=== PATIENT | male | born 1950 | race Caucasian/White ===

== ENCOUNTER 2017-09-20 07:13 | Emergency (ER) | payer OTHER ==
[2017-09-20 07:50] VITALS: BP 138/78
--- NOTE | 2017-09-20 08:29 | UC ---
Skin Complaint HPI - HPI Summary HPI Summary: 66 y/o male presents to the urgent care c/o a rash in his RT forearm, RT buttocks and Rt upper thigh s/p exposure to poison carrie while gardening about 1 week ago. Pt was cleaning the garden and he saw the poison carrie, he removed it wearing gloves, but accidentally sat on it. He has applied Hidrocortisone topical cream and Triple ABX to alleviate symptoms w/o any relief. Pt states a lot of itchiness. Pt denies fever, SOB, chest pain, abdominal pain, N/v/D - History of Current Complaint Chief Complaint: UCSkin Time Seen by Provider: 09/20/17 08:09 Stated Complaint: RASH Hx Obtained From: Patient Onset/Duration: Gradual Onset, Lasting Weeks - 1 week, Still Present, Worse Since - yesterday Skin Exposure Onset/Duration: Weeks Ago - 1 week Timing: Constant Onset Severity: Mild Current Severity: Moderate Pain Intensity: 0 Pain Scale Used: 0-10 Numeric Location: Discrete - RT forearm, Rt buttocks and Rt upper thigh Character: Pruritus, Redness Aggravating Factor(s): Touch Alleviating Factor(s): OTC Meds Associated Signs & Symptoms: Positive: Rash. Negative: Fever, Chills, Drainage Related History: Possible Reaction to: Environmental Exposure - Allergy/Home Medications Allergies/Adverse Reactions: Allergies Allergy/AdvReac Type Severity Reaction Status Date / Time latex Allergy Rash Verified 09/20/17 07:38 Home Medications: Home Medications Alfuzosin HCl [Alfuzosin HCl ER] 10 mg PO DAILY 09/20/17 [History Confirmed ] Dutasteride 0.5 mg PO DAILY 09/20/17 [History Confirmed 09/20/17] Losartan TAB* [Cozaar TAB*] 25 mg PO DAILY 09/20/17 [History Confirmed 09/20/17] Review of Systems Constitutional: Negative Skin: Rash - in Rt forearm, Rt upper thigh and Rt buttocks, Other - pruritus Eyes: Negative ENT: Negative Respiratory: Negative Cardiovascular: Negative Gastrointestinal: Negative Genitourinary: Negative Motor: Negative Neurovascular: Negative Musculoskeletal: Negative Neurological: Negative Psychological: Negative Is Patient Immunocompromised?: No All Other Systems Reviewed And Are Negative: Yes PMH/Surg Hx/FS Hx/Imm Hx Previously Healthy: Yes Cardiovascular History: Myocardial Infarction Other GI/ History: BPH - Surgical History Surgical History: Yes Surgery Procedure, Year, and Place: 2017 CYSTS L flank REMOVED, VASECTOMY, tonsillectomy, coronary stent - Family History Known Family History: Positive: Cardiac Disease, Hypertension - Social History Occupation: Employed Full-time Lives: With Family Alcohol Use: Occasionally Substance Use Type: None Smoking Status (MU): Never Smoked Tobacco Have You Smoked in the Last Year: No Physical Exam - Summary Physical Exam Summary: Vital Signs Reviewed: Yes General: well developed, well nourished male sitting in the examining table w/o any apparent distress. Eyes: Positive: Conjunctiva Clear - PERRLA, EOMI ENT: Positive: Normal ENT inspection, Hearing grossly normal, Pharynx normal, TMs normal Neck: Positive: Supple, Nontender, No Lymphadenopathy Respiratory: Positive: Chest nontender, Lungs clear, Normal breath sounds Cardiovascular: Positive: RRR, No Murmur, Pulses Normal Abdomen Description: Positive: Nontender, No Organomegaly, Soft. Negative: CVA Tenderness (R), CVA Tenderness (L) Bowel Sounds: Positive: Present Musculoskeletal: Positive: Strength Intact, ROM Intact, No Edema Neurological Exam: Normal Psychological Exam: Normal Skin: Positive: rashes -RT forearm and RT buttuck and RT upper thigh w/ scattered erythematous blisters and vesicles, particularly in linear streaks w/ mild signs of excoriation, no drainage observed, non tender to palpation. Triage Information Reviewed: Yes Vital Signs: Initial Vital Signs Temp 97.9 F 09/20/17 07:43 Pulse 62 09/20/17 07:43 Resp 16 09/20/17 07:43 BP 138/78 09/20/17 07:43 Pulse Ox 98 09/20/17 07:43 Course/Dx - Course Course Of Treatment: 66 y/o male presents to the urgent care c/o a rash in his RT forearm, RT buttocks and Rt upper thigh s/p exposure to poison carrie while gardening about 1 week ago. Pt was cleaning the garden and he saw the poison carrie, he removed it wearing gloves, but accidentally sat on it. He has applied Hidrocortisone topical cream and Triple ABX to alleviate symptoms w/o any relief. Pt states a lot of itchiness. Pt denies fever, SOB, chest pain, abdominal pain, N/V/D. Hx obtained. Pt w/ poison Carrie rash on examination. PT Rx Prednisone PO taper dose and Clobetasolcinolone topical cream and Benadryl PO to alelviate symptoms. Pt was advised to continue taking Benadryl PO for pruritus. If not improvement or worsening of symptoms to return to the clinic or f/u with PCP or f/u w/ Dr Harris for further treatment.PT understood and agreed with D/C instructions - Differential Diagnoses - Skin Complaint Differential Diagnoses: Abscess, Cellulitis, MRSA, Poison [place], Poison [place], Tick Born Illness - Diagnoses Provider Diagnoses: 1-Poison [place] rash Discharge - Sign-Out/Discharge Documenting (check all that apply): Discharge/Admit/Transfer - D/C home - Discharge Plan Condition: Stable Disposition: HOME Prescriptions: Clobetasol Propionate/Emoll [Clobetasol Emollient 0.05% Crm] 30 gm TP BID #1 cream..g. diPHENhydraMINE PO* [Benadryl PO 25 MG TAB*] 25 mg PO Q6H PRN #30 tab PRN Reason: pruritus predniSONE TAB* [Deltasone 20 MG TAB*] 20 mg PO DAILY #11 tab Patient Education Materials: Poison [place] (ED) Referrals: Jessica Harris [Medical Doctor] - If Needed Johnie Fletcher MD [Primary Care Provider] - 2 Days Additional Instructions: 1-Please apply medication as directed. Take Prednisone PO as directed to alleviate symptoms 2-Take Benadryl PO after to alleviate itchiness. 3-If symptoms do not improve or worsen please f/u with your PCP or Embedded Processor Dr Harris for further evaluation and treatment. - Billing Disposition and Condition Condition: STABLE Disposition: Home
== END 2017-09-20 09:05 | disposition home or self-care (01) ==
LOC: UCEAST 07:13
DX: L23.7 Allergic contact dermatitis due to plants, except food (principal); Z91.040 Latex allergy status; I25.2 Old myocardial infarction; N40.0 Benign prostatic hyperplasia without lower urinary tract symptoms; Z95.5 Presence of coronary angioplasty implant and graft; Z82.49 Family history of ischemic heart disease and other diseases of the circulatory system
CPT/HCPCS: 99212; G0463

== ENCOUNTER 2018-03-23 10:06 | Emergency (ER) | payer OTHER ==
--- OUTSIDE RECORDS SUMMARY | 2018-03-23 10:12 | XMS REPORT | Continuity of Care Document ---
:1950 External Reference #:[id number] Author Name Rivas Courtney M.D. Address [address] [place] [address] Care Team Providers Name Role Phone Johnie Fletcher MD Care Team Information [employer] Chief Unavailable Johnie Fletcher MD Primary Care Physician Unavailable Payers Type Date Identification Numbers Payment Provider Subscriber Policy Number: [id number] [employer] Johan Mcclain PayID: [id number] [address] [place] [address] Advance Directives Description No Information Available Problems Date Description Provider Status Onset: 11/22/2014 Peripheral retinal degeneration Julissa Nunez O.D. Active Onset: 11/22/2014 Vitreous opacities Julissa Nunez O.D. Active Onset: 11/22/2014 Vitreous degeneration Julissa Nunez O.D. Active Onset: 11/22/2014 Regular astigmatism Julissa Nunez O.D. Active Onset: 11/22/2014 Presbyopia Julissa Nunez O.D. 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 Family History Date Family Member(s) Problem(s) Comments Father Cataract Father Ocular Disorder Father Cancer Father Heart Disease Father H/O: Hypertension Mother No Current Problems Social History Type Date Description Comments Sex Unknown ETOH Use Occasionally consumes alcohol Tobacco Use Start: Unknown Patient has never smoked Smoking Status Reviewed: 03/05/18 Patient has never smoked Allergies, Adverse Reactions, Alerts Date Description Reaction Status Severity Comments 09/14/2014 Latex Active Medications Medication Date Status Form Strength Qnty SIG Indications Ordering Provider Aspir-81 00//[address] 81mg once per Unknown 000 day by mouth Carvedilol //0 Active Tablets Unknown 000 Atorvastatin 0 Active Tablets 20mg Unknown Calcium 000 Losartan Active Tablets 25mg Unknown Potassium 000 Alfuzosin HCL ER Active Tablets ER 10mg Unknown 000 24HR Dutasteride Active Capsules 0.5mg 1 by Unknown 000 mouth every day Clopidogrel Hx Tablets Unknown Bisulfate 000 - 018 Lisinopril Hx Tablets Unknown 000 - 018 Multivitamins Hx Capsules Unknown 000 - 018 Immunizations Description No Information Available Vital Signs Date Vital Result Comment 03/05/2018 2:56pm Intraocular Pressure Right Eye 17 mmHg Intraocular Pressure Left Eye 17 mmHg 11/22/2014 8:35am Intraocular Pressure Right Eye 16 mmHg Intraocular Pressure Left Eye 16 mmHg Results Description No Information Available Procedures Date Code Description Status 03/05/2018 72075 Ophthalmoscopy Initial Completed 03/05/2018 88639 Refraction Completed 03/05/2018 94065 Eye Exam New Comprehensive Completed 11/22/2014 88055 Fundus Photography W/Interpretation & Report Completed 11/22/2014 06501 Refraction Completed 11/22/2014 62537 Eye Exam Est Comprehensive Completed 11/22/2014 301 Contact Lens Fit $25 Completed Encounters Description No Information Available Plan of Treatment 03/05/2018 - Rivas Courtney M.D.H44.23 Degenerative myopia, [id number] Vitreous degeneration, [id number] PresbyopiaFollow up:1 yrH25.13 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
[2018-03-23] MEDS ORDERED: Aspirin TAB* 325 MG PO ONE (10:36)
[2018-03-23 10:38] VITALS: BP 153/77
--- NOTE | 2018-03-23 10:44 | UC ---
Dizzy HPI HPI Summary: 67 y/o male with h/o AL ~ 10 years ago, stent to RCA, presents with dizziness, feeling "wobbly" since 4AM. Woke to use restroom, felt unsteady on feet, + vertigo, fell back asleep, this AM woke with same symptoms, + diarrhea/ vomiting x several episodes. Denies chest pain, SOB. 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 - History Of Current Complaint Chief Complaint: UCDizziness Stated Complaint: DIZZY Time Seen by Provider: 03/23/18 10:29 Hx Obtained From: Patient, Family/Client Relations Representative - Onset/Duration: Sudden Onset, Lasting Hours Timing: Constant Severity Initially: Mild Severity Currently: None Pain Intensity: 0 Pain Scale Used: 0-10 Numeric - Allergies/Home Medications Allergies/Adverse Reactions: Allergies Allergy/AdvReac Type Severity Reaction Status Date / Time latex Allergy Rash Verified 03/23/18 11:23 PMH/Surg Hx/FS Hx/Imm Hx Previously Healthy: No - RCA AL w stent 10 years ago Cardiovascular History: Cardiac Disease, Myocardial Infarction - Surgical History Surgical History: Yes Surgery Procedure, Year, and Place: 2017 CYSTS L flank REMOVED, VASECTOMY, tonsillectomy, coronary stent - Family History Known Family History: Positive: Cardiac Disease, Hypertension - Social History Alcohol Use: Occasionally Substance Use Type: None Smoking Status (MU): Never Smoked Tobacco Have You Smoked in the Last Year: No Review of Systems All Other Systems Reviewed And Are Negative: Yes Constitutional: Positive: Fatigue Respiratory: Negative: Shortness Of Breath Cardiovascular: Negative: Palpitations, Chest Pain Gastrointestinal: Positive: Vomiting, Diarrhea, Nausea Psychological: Positive: Anxious Is Patient Immunocompromised?: No Physical Exam Triage Information Reviewed: Yes Appearance: Well-Appearing, No Pain Distress, Well-Nourished Vital Signs: Initial Vital Signs Temp 97.4 F 03/23/18 10:36 Pulse 66 03/23/18 10:36 Resp 16 03/23/18 10:36 BP 153/77 03/23/18 10:36 Pulse Ox 100 03/23/18 10:36 Eyes: Positive: Conjunctiva Clear Respiratory: Positive: Chest non-tender, Lungs clear, Normal breath sounds, No respiratory distress, No accessory muscle use. Negative: Respiratory distress, Decreased breath sounds, Crackles, Rhonchi, Stridor, Wheezing Cardiovascular: Positive: RRR, No Murmur, Pulses Normal Abdomen Description: Positive: Nontender, No Organomegaly, Soft, Bruit, CVA Tenderness (R), CVA Tenderness (L). Negative: Hernia @, Hepatomegaly, McBurney' s Point Tenderness, Peritoneal Signs Bowel Sounds: Positive: Present Neurological Exam: Normal Neurological: Positive: Alert Skin Exam: Normal Dizzy Course/Dx - Course Course Of Treatment: EKG changes with T inversion on III, AVF, no recent EKG to compare, reviewed by Dr. Trimble, transferred to ER via [place] after discussion with , patient - Differential Dx/Diagnosis Differential Diagnosis/HQI/PQRI: Coronary Artery Disease, CVA Provider Diagnosis: Acute electrocardiogram changes Discharge - Sign-Out/Discharge Documenting (check all that apply): Patient Departure All imaging exams completed and their final reports reviewed: No Studies - Discharge Plan Condition: Guarded Disposition: TRANS HIGHER LVL OF CARE FAC Patient Education Materials: Dizziness (ED) Referrals: Johnie Fletcher MD [Primary Care Provider] - Additional Instructions: - ASA 325mg given -IV/ IVF started - Transfer to ER for further work up/ testing - Billing Disposition and Condition Condition: GUARDED Disposition: Trans Higher Lvl of Care Fac - Attestation Statements Provider Attestation: I was available for consult. This patient was seen by the ANTONIETTA. The patient was not presented to, seen by, or examined by me. -Yvon
[2018-03-23] MEDS ORDERED: NS 0.9% 1000 ML* 1,000 ML IV SCH (10:45)
== END 2018-03-23 11:00 | disposition short-term general hospital (02) ==
LOC: UCEAST 10:06
DX: I25.2 Old myocardial infarction (principal); R94.31 Abnormal electrocardiogram [ECG] [EKG]
CPT/HCPCS: 93005; 96361; 99213; G0463

== ENCOUNTER 2018-03-23 11:19 | Emergency (ER) | payer OTHER ==
[2018-03-23] MEDS ORDERED: NS 0.9% 1000 ML* 1,000 ML IV ONE (11:37)
--- NOTE | 2018-03-23 11:38 | ED ---
HPI Cardiac - HPI Summary HPI Summary: Patient is a 67 y/o M presenting to ED from formerly [facility] care with concerns of abnormal EKG with T-wave inversions alongside dizziness, N/V/D since 399. He denies chest pain, left arm pain. PMHx of [place] in 2007, reports that he did not have a "classic presentation". 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 He states he is not experiencing Sx currently. He does report having eaten a "bad stew" last night. On triage, pain is denied, nothing is noted to aggravate/alleviate Sx. Home medications and allergies are reviewed. - History of Current Complaint Chief Complaint: EDDizziness Stated Complaint: DIZZINESS Time Seen by Provider: 03/23/18 11:23 Hx Obtained From: Patient Onset/Duration: Started Hours Ago - onset 0400 today, Atraumatic, Resolved - Sx have resolved Timing: Constant, Lasting Hours - onset 0400 Current Severity: None - pain denied Pain Intensity: 0 Pain Scale Used: 0-10 Numeric - 0/10 Chest Pain Radiates: No Aggravating Factor(s): Nothing Alleviating Factor(s): Nothing Associated Signs and Symptoms: Positive: Dizziness, Nausea, Vomiting, Other: - diarrhea - Allergy/Home Medications Allergies/Adverse Reactions: Allergies Allergy/AdvReac Type Severity Reaction Status Date / Time latex Allergy Rash Verified 03/23/18 11:23 Home Medications: Home Medications Alfuzosin ER (NF) [Uroxatral (NF)] 10 mg PO DAILY 03/23/18 [History Confirmed ] Aspirin EC TAB* [Ecotrin EC Low Dose 81 MG*] 81 mg PO BID 03/23/18 [History Confirmed 03/23/18] Aspirin TAB* [Aspirin 325 MG TAB*] 325 mg PO Q4HR PRN 03/23/18 [History Confirmed 03/23/18] Atorvastatin* [Lipitor*] 40 mg PO BEDTIME 03/23/18 [History Confirmed 03/23/18] Carvedilol TAB* [Coreg TAB*] 6.25 mg PO BID 03/23/18 [History Confirmed 03/23/18 ] Dutasteride (NF) [Avodart (NF)] 0.5 mg PO DAILY 03/23/18 [History Confirmed ] Multivit-Min/FA/Lycopen/Lutein [Centrum Silver Men Tablet] 1 tab PO DAILY [History Confirmed 03/23/18] Nitroglycerin TAB 0.4 MG* 0.4 mg SL Q5M PRN 03/23/18 [History Confirmed 03/23/18 ] diPHENhydraMINE PO* [Benadryl PO 25 MG TAB*] 25 mg PO DAILY PRN 03/23/18 [ History Confirmed 03/23/18] PMH/Surg Hx/FS Hx/Imm Hx Endocrine/Hematology History: Denies: Hx Diabetes, Hx Systemic Lupus Erythematosus, Hx Thyroid Disease Cardiovascular History: Reports: Hx Hypertension, Hx Myocardial Infarction Denies: Hx Congestive Heart Failure Respiratory History: Denies: Hx Asthma, Hx Chronic Obstructive Pulmonary Disease (COPD) GI History: Denies: Hx Ulcer History: Denies: Hx Dialysis, Hx Renal Disease Musculoskeletal History: Denies: Hx Rheumatoid Arthritis - Cancer History Hx Chemotherapy: No - Surgical History Surgery Procedure, Year, and Place: 2017 CYSTS L flank REMOVED, VASECTOMY, tonsillectomy, coronary stent Infectious Disease History: No Infectious Disease History: Denies: Hx Hepatitis, Hx Human Immunodeficiency Virus (HIV), Traveled Outside the [place] in Last 30 Days - Family History Known Family History: Positive: Cardiac Disease, Hypertension - Social History Alcohol Use: Occasionally Substance Use Type: Reports: None Smoking Status (MU): Never Smoked Tobacco Have You Smoked in the Last Year: No Review of Systems Negative: Chest Pain Positive: Vomiting, Diarrhea, Nausea Positive: Other - NEGATIVE - LEFT ARM PAIN Neurological: Other - POSITIVE - DIZZINESS All Other Systems Reviewed And Are Negative: Yes Physical Exam - Summary Physical Exam Summary: VITAL SIGNS: Reviewed. GENERAL: Patient is a well-developed and nourished male who is lying comfortable in the stretcher. Patient is not in any acute respiratory distress. HEAD AND FACE: No signs of trauma. No ecchymosis, hematomas or skull depressions. No sinus tenderness. EYES: PERRLA, EOMI x 2, No injected conjunctiva, no nystagmus. EARS: Hearing grossly intact. Ear canals and tympanic membranes are within normal limits. MOUTH: Oropharynx within normal limits. NECK: Supple, trachea is midline, no adenopathy, no JVD, no carotid bruit, no c- spine tenderness, neck with full ROM. CHEST: Symmetric, no tenderness at palpation LUNGS: Clear to auscultation bilaterally. No wheezing or crackles. CVS: Regular rate and rhythm, S1 and S2 present, no murmurs or gallops appreciated. ABDOMEN: Soft, non-tender. No signs of distention. No rebound no guarding, and no masses palpated. Bowel sounds are normal. EXTREMITIES: FROM in all major joints, no edema, no cyanosis or clubbing. NEURO: Alert and oriented x 3. No acute neurological deficits. Speech is normal and follows commands. GCS 15 SKIN: Dry and warm Triage Information Reviewed: Yes Vital Signs On Initial Exam: Initial Vitals Temp Pulse Resp BP Pulse Ox 97.2 F 72 18 166/97 96 03/23/18 11:21 03/23/18 11:21 03/23/18 11:21 03/23/18 11:21 03/23/18 11:21 Vital Signs Reviewed: Yes Diagnostics - Vital Signs Vital Signs Temp Pulse Resp BP Pulse Ox 03/23/18 11:27 78 18 96 03/23/18 11:26 73 14 160/92 96 03/23/18 11:21 97.2 F 72 18 166/97 96 - Laboratory Result Diagrams: 03/23/18 12:48 03/23/18 12:48 Lab Statement: Any lab studies that have been ordered have been reviewed, and results considered in the medical decision making process. - CT brain ct CT Interpretation Completed By: Radiologist Summary of CT Findings: IMPRESSION: NO EVIDENCE FOR ACUTE INTRACRANIAL ABNORMALITY. THIS REPORT WAS REVIEWED BY ED PHYSICIAN. - EKG 1140 Cardiac Rate: NL - rate of 74 bpm EKG Rhythm: Sinus Rhythm ST Segment: Normal Summary of EKG Findings: EKG showed sinus rhythm with rate of 74 bpm, T wave inversion in 3 and AVF, no ST elevation. Re-Evaluation - Re-Evaluation First Eval Re-Evaluation Time: 13:16 Comment: Since all his symptoms have resolved and all the blood tests and a head CT were found to be within normal limits the patient will be discharged home with follow-up with primary care physician. I discussed all the findings and test results with the patient. Patient was instructed to return to the emergency room immediately if any of the symptoms return or worsens. Plan of care was discussed with the patient and understands and agrees. All questions were answered at patient satisfaction. There were no further complaints or concerns. Lung exam before discharge: CTA B/L. Good air exchange. No wheezing or crackles heard. CVS: S1 and S2 present. No murmurs appreciated. Patient is alert and oriented x 3. Patient is hemodynamically stable. Negative acute neurologic deficits before discharge.Patient will be discharged home with follow up PCP in the next 2-3 days Disposition - Course Assessment/Plan: Patient is a 67 y/o M presenting to ED from formerly [facility] care with concerns of abnormal EKG with T-wave inversions alongside dizziness, N/V/D since 0400. He denies chest pain, left arm pain. PMHx of [place] in 2007, reports that he did not have a "classic presentation". 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 He states he is not experiencing Sx currently. He does report having eaten a "bad stew" last night. On triage, pain is denied, nothing is noted to aggravate/alleviate Sx. Home medications and allergies are reviewed. Blood work without any significant abnormality. EKG shows no ST elevations. Patient has inverted T waves in these [address] shows no acute interval pathology. In the ED course the patient declined Zofran and Antivert since he reports that his symptoms have resolved. Since all his symptoms have resolved and all the blood tests and head CT were found to be within normal limits the patient will be discharged home with follow-up with primary care physician. I discussed all the findings and test results with the patient. Patient was instructed to return to the emergency room immediately if any of the symptoms return or worsens. Plan of care was discussed with the patient and understands and agrees. All questions were answered at patient satisfaction. There were no further complaints or concerns. Lung exam before discharge: CTA B/L. Good air exchange. No wheezing or crackles heard. CVS: S1 and S2 present. No murmurs appreciated. Patient is alert and oriented x 3. Patient is hemodynamically stable. Negative acute neurologic deficits before discharge.Patient will be discharged home with follow up PCP in the next 2-3 days - Diagnoses Provider Diagnoses: Vertigo, Nausea & vomiting Discharge - Sign-Out/Discharge Documenting (check all that apply): Patient Departure - discharge - Discharge Plan Condition: Stable Disposition: HOME Patient Education Materials: Acute Nausea and Vomiting (ED), Dizziness (ED) Referrals: Bryon Wills MD [Medical Doctor] - 3 Days Johnie Fletcher MD [Primary Care Provider] - 3 Days Additional Instructions: RETURN TO ED FOR ANY NEW OR WORSENING SYMPTOMS. 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 - Billing Disposition and Condition Condition: STABLE Disposition: Home - Attestation Statements Document Initiated by Scribe: Yes Documenting Scribe: MARINA KIMBALL Provider For Whom Scribe is Documenting (Include Credential): JOHNIE LUJAN MD Scribe Attestation: MARINA Chi , scribed for JOHNIE LUJAN MD on 03/23/18 at 1813. Scribe Documentation Reviewed: Yes Provider Attestation: The documentation as recorded by the MARINA lira accurately reflects the service I personally performed and the decisions made by me, JOHNIE LUJAN MD Status of Scribe Document: Viewed
[2018-03-23] MEDS ORDERED: Meclizine TAB* 12.5 MG PO ONE (11:39)
[2018-03-23] MEDS ORDERED: Ondansetron INJ* 2 MG/ML VIAL IV ONE (11:39)
[2018-03-23 12:33] LABS: Urine Appearance Clear; Urine Bacteria Absent (Absent); Urine Bilirubin Negative (Negative); Urine Blood 1+ (Negative); Urine Color Yellow; Urine Glucose Negative (Negative); Urine Ketones Negative (Negative); Urine Nitrite Negative (Negative); Urine Protein Negative (Negative); Urine Red Blood Cell 1+(3-5/hpf) (Absent); Urine Urobilinogen Negative (Negative); Urine White Blood Cell Absent (Absent)
[2018-03-23 12:56] LABS: ABS Basophils 0 10^3/ul (0-0.2); ABS Eosinophils 0 10^3/ul (0-0.6); ABS Lymphocytes 0.9 10^3/ul (1.0-4.8); ABS Monocytes 0.4 10^3/ul (0-0.8); ABS Neutrophils 7.9 10^3/ul (1.5-7.7); ABS Nucleated RBC 0 10^3/ul; Eosinophil % 0.1 %; Hematocrit 44 % (42-52); Hemoglobin 15.2 g/dl (14.0-18.0); Lymphocyte % 10.2 %; Mean Corpuscular HGB Conc 34 g/dl (31-36); Mean Corpuscular Hemoglobin 30 pg (27-31); Mean Corpuscular Volume 87 fL (80-94); Mean Platelet Volume 8.2 fL (7.4-10.4); Nucleated Red Blood Cells % 0.1; Platelet Count 212 10^3/ul (150-450); Red Blood Count 5.12 10^6/ul (4.00-5.40); Red Cell Distribution Width 14 % (10.5-15); White Blood Count 9.3 10^3/ul (3.5-10.8)
[2018-03-23 13:14] LABS: Albumin 4.2 g/dL (3.2-5.2); Albumin/Globulin Ratio 1.6 (1-3); BUN/Creatinine Ratio 16.3 (8-20); C Reactive Protein 1.95 mg/L (<8.01); EGFR Non-African American 71.5 (>60); Globulin 2.7 g/dL (2-4); Magnesium 1.9 mg/dL (1.9-2.7); Potassium 4.7 mmol/L (3.5-5.0); Total Bilirubin 0.5 mg/dL (0.2-1.0); Total Protein 6.9 g/dL (6.4-8.9)
[2018-03-23 13:37] VITALS: BP 137/86
[2018-03-23 13:51] LABS: TSH (Thyroid Stimulating Horm) 2.09 mcIU/mL (0.34-5.60)
== END 2018-03-23 13:26 | disposition home or self-care (01) ==
LOC: ED 11:19
DX: R42 Dizziness and giddiness (principal); R11.2 Nausea with vomiting, unspecified; R19.7 Diarrhea, unspecified; Z79.82 Long term (current) use of aspirin
CPT/HCPCS: 36415; 70450; 80053; 81003; 81015; 83605; 83735; 84443; 84484; 85025; 86140; 93005; 96361; 96374; 99284; A9270-GY; J2405

== ENCOUNTER → 2019-04-28 10:20 | Day surgery (SDC) | payer OTHER ==
--- NOTE | 2019-04-13 10:26 | HP ---
AMENDED REPORT NOW INCLUDES DESIGNATED COSIGNER CC: Dr. Johnie Fletcher * PREOPERATIVE HISTORY AND PHYSICAL: DATE OF ADMISSION/SURGERY: 04/28/19 This patient is scheduled for same-day surgery admission by Dr. Smith on . DATE OF PREOPERATIVE HISTORY AND PHYSICAL EXAMINATION: 04/09/19 ATTENDING SURGEON: Dr. Leonidas Smith * (dictated by Deepthi Henao NP). CHIEF COMPLAINT: Bilateral inguinal hernias. HISTORY OF PRESENT ILLNESS: The patient is a 68-year-old male who presented to [facility] for evaluation of possible bilateral inguinal hernias. The patient thought that he had possibly developed a right inguinal hernia about 2 years ago when he had a sharp pain that resolved quickly and he never thought about it again. More recently, however, the patient was on a bus to [facility] and noted that when he lifted his large luggage he had a sharp right-sided groin pain. He also recently did some concrete work at home and had left groin pain. Now, he is describing bulging at the bilateral inguinal regions. He denies any change in bowel habits. He denies any signs or symptoms to suggest incarceration or strangulation. He is being more mindful of lifting to prevent the pain. Dr. Smith examined the patient and noted bilateral inguinal hernias that are easily reducible. Dr. Smith has therefore recommended laparoscopic bilateral inguinal hernia repair with mesh as a same-day surgery procedure. Dr. Smith outlined the details of the surgical procedure going over the relevant risks, benefits, and alternatives and the patient wishes to proceed. Today, I reviewed the expected postoperative care and recovery with the patient and he has had a chance to ask questions and stated that he understands the information and is satisfied with the answers given to his questions. He will sign surgical consent on the day of surgery. PAST MEDICAL HISTORY: Coronary artery disease with myocardial infarction in 2006 with single-vessel stenting at the [facility]; back pain; mildly dilated ascending aorta. PAST SURGICAL HISTORY: Cardiac catheterization and single-vessel stent at the [facility] in 2006; excision of lipoma and multiple excisions of other skin lesions. MEDICATIONS: 1. Losartan 25 mg p.o. daily. 2. Alfuzosin ER 10 mg 1 tablet p.o. daily. 3. Carvedilol 6.25 mg 1 tablet b.i.d. 4. Atorvastatin 40 mg daily at bedtime. 5. Dutasteride 0.5 mg p.o. daily. 6. Aspirin 81 mg p.o. daily and he will hold that 5 days preoperatively. ALLERGIES: LISINOPRIL and LATEX. FAMILY HISTORY: Father with a history of coronary artery disease and kidney cancer. Mother with a history of Alzheimer's, colon cancer, and coronary artery disease. 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 He has never been a smoker. He occasionally consumes alcohol and denies the use of other substances. REVIEW OF SYSTEMS: Constitutional: No fevers, chills, excessive fatigue, or unexplained weight loss. General: No previous anesthesia complications. No history of deep vein thrombosis or pulmonary embolism. When he was on Plavix, he had some hematuria and saw Dr. Comer at that time. No recent hematuria or bleeding tendencies. Endocrine: No diabetes or thyroid disease. Respiratory: No shortness of breath or chronic cough. Cardiovascular: Previous history of inferior myocardial infarction. He is followed by Dr. Wills and was cleared to proceed with this surgery. Please see Dr. Wills's cardiology note of . The patient did undergo a stress test on 03/22/19. There was no evidence of ischemia. There was a small-sized inferolateral infarction pattern, overall normal LV function, and when compared to previous exercise nuclear stress test performed in 2015, there was no significant change. He also had an echocardiogram in February 2019, EF 50% to 55%. The patient denies any chest pain or palpitations and is able to walk up to 4 miles and denies any syncopal episodes. Gastrointestinal: As described in history of present illness. Genitourinary: No dysuria. No recent hematuria. Musculoskeletal: Normal strength and tone. Neurologic: No blurred vision. No areas of focal weakness or numbness. Psychiatric: No reported anxiety, depression, or insomnia. PHYSICAL EXAMINATION GENERAL SURVEY: The patient is a 68-year-old male, obese, well developed, in no acute distress. VITAL SIGNS: Height 67 inches, weight 212 pounds, body mass index 33.2. Blood pressure 122/82, pulse 64 and regular, respiratory rate 16, temperature 97.8 tympanic. HEENT: Benign. NECK: Supple. No cervical lymphadenopathy. LUNGS: Breath sounds bilaterally clear and equal. HEART: Regular rate and rhythm. No murmurs or rubs appreciated. ABDOMEN: Active bowel sounds. Obese, soft, nondistended, nontender throughout. No obvious masses or organomegaly. BACK: No CVA tenderness. GENITALIA: Inguinal exam done by Dr. Smith. Bilateral inguinal hernias that are easily reducible. Testicles are normally descended without lesion. RECTAL: Exam deferred. EXTREMITIES: Warm without edema or skin ulceration. NEUROLOGIC: Alert and oriented x3. Steady gait. SKIN: Warm, dry, intact. IMPRESSION: Bilateral inguinal hernias. PLAN: Same-day surgery admission to Dr. Smith's service on 04/28/19 for laparoscopic bilateral inguinal hernia repairs with mesh. CHELY HENAO, CAMPUS SECURITY DIRECTOR [id number]/[facility] #: [id number] MTDCesilia
[~2019-04-28 10:20] MED LIST: Buffered Lidocaine 1% SYRIN* 1 ML/SYRINGE INTRADERM ONE; Bupivacaine 0.25% EPI 200,000* 30 ML SDV ONE; Dexamethasone IV* 4 MG/ML 1 ML (4 MG) ONE; Etomidate* 2 MG/ML 10 ML VIAL ONE; HYDROmorphone INJ1* 1 MG/ML SYRINGE IV PRN; Heparin VIAL(*) 5000 UNITS/ML VIAL (FIVE THOUSAND) ONE; Labetalol IV* 5 MG/ML 20 ML VIAL IV PUSH PRN; Lactated Ringers 1000 ML Bag* 1,000 ML IV SCH; Midazolam* 1 MG/ML 2 ML VIAL (2 MG) ONE; Naloxone* 0.4 MG/ML 1 ML VIAL IV PRN; Rocuronium* 10 MG/ML VIAL ONE; ceFAZolin 2 GM PREMIX in ORs 2 GM/50 ML BAG ONE; fentaNYL* 50 MCG/ML 2 ML VIAL (100 MCG VIAL) ONE
--- NOTE | 2019-04-28 14:17 | BRIEFOPN ---
Brief Operative/Procedure Note - Operation Details Pre-Op Diagnosis: Bilateral inguinal hernias Post-Op Diagnosis: Bilateral inguinal hernias Procedures: Laparoscopic bilateral inguinal hernia repair with mesh Surgeon(s)/Proceduralists: Dr. Smith. Assist: ESTEBAN Juárez Anesthesia: GETA. IVF 2L Estimated Blood Loss: <50cc Findings: As above Specimen(s)/Culture(s) Description: None Complications: None
[2019-04-28 16:20] VITALS: BP 142/90
--- NOTE | 2019-05-06 00:25 | OP ---
CC: Primary care doctor; [facility] * DATE OF OPERATION: 04/28/19 - [facility] DATE OF : 52 SURGEON: Leonidas Smith MD CUSTOMER ENGAGEMENT ANALYST: ESTEBAN Ponce ANESTHESIA: General anesthesia. PRE-OP DIAGNOSIS: Bilateral inguinal hernias. POST-OP DIAGNOSIS: Bilateral inguinal hernias. OPERATIVE PROCEDURE: Laparoscopic bilateral inguinal hernia repair with mesh. ESTIMATED BLOOD LOSS: Less than 50 cc. SPECIMEN: None. DESCRIPTION OF PROCEDURE: The patient was identified in the preoperative area. He was marked. Consent was signed. He was then taken to the operating room, placed on the operating table in supine position. Preoperative antibiotics were given. Sequential devices were placed on bilateral lower extremities and general anesthesia was induced. The patient's abdomen was prepped and draped in standard surgical fashion. A time-out was performed. An infraumbilical incision was made. This was deepened down to the anterior fascia on the left and this fascia was incised, and the rectus pillar was attempted to be rotated laterally. I felt that we were not in the preperitoneal space in the appropriate fashion and extended my incision more medially and we entered into the abdomen at that point. I then closed up the posterior tissues and extended my fascial incision laterally onto the right side and attempted to open into the preperitoneal space. In this area, we retracted the musculature laterally and entered the preperitoneal plane and blunt dissection was carried out. We then placed a balloon dissector in and inflated this under direct vision. Balloon dissector was removed and a blunt 12 mm trocar was inserted and it was clear that we were in the abdomen. At this point, camera was inserted and I looked around, saw that the patient had bilateral hernias as expected. We then decided to perform a transabdominal preperitoneal hernia repair. We turned our attention to the left side. Peritoneum was taken down with both sharp and blunt dissection starting at the median umbilical ligament and extending this laterally. We then were able to push this down inferiorly and then identified the hernia sac, which was cleared up as it appeared to be a direct hernia that fell back easily. The spermatic structures were isolated, we cleared off the space laterally and posteriorly. There was no evidence of an indirect hernia. Attention was then turned towards the right side. Peritoneum was taken down in a similar fashion. A direct hernia was again isolated. We isolated Vishal ligament and reduced the direct hernia. We identified an indirect hernia component as well, which was with gentle traction reduced as well. Lateral spaces were cleared off as well until we had area for the mesh placement. Next, a large Bard 3D Max mesh was utilized. We then placed this into the abdomen and placed this into the extraperitoneal space covering up the full myopectineal orifice. We tacked this to the Vishal ligament on the right and also superiorly to the rectus muscle and also laterally. Next, a similar Bard mesh, but medium size was opened up for the left side. This was allowed to unfurl and then also placed in the abdomen. At the midline the 2 met and we tacked this as well as tacked the Vishal ligament and also laterally. Next, the peritoneum was reflected back and sutured with a running Stratafix 2- 0 and another similar suture was used on the right side. Peritoneum was sutured well without any violations and the abdomen was allowed to collapse. Trocar was removed under direct vision. Anterior fascia was reapproximated as were the skin incision. The patient was woken up and transferred to PACU in stable condition. [id number]/[facility] #: [id number] [facility] CENTERCesilia
== END | disposition home or self-care (01) ==
LOC: OR 10:20
PROVIDERS: ATTEND Surgery
PROC: 0YUA4JZ Supplement Bilateral Inguinal Region with Synthetic Substitute, Percutaneous Endoscopic Approach (ICD-10-PCS; principal; 2019-04-28 12:00)
DX: K40.20 Bilateral inguinal hernia, without obstruction or gangrene, not specified as recurrent (principal); I25.10 Atherosclerotic heart disease of native coronary artery without angina pectoris; I10 Essential (primary) hypertension; N40.0 Benign prostatic hyperplasia without lower urinary tract symptoms; I25.2 Old myocardial infarction; I77.810 Thoracic aortic ectasia; Z79.82 Long term (current) use of aspirin; Z95.5 Presence of coronary angioplasty implant and graft
CPT/HCPCS: C1781; J0690; J1100; J1644; J2250; J3010

== ENCOUNTER 2023-08-27 08:37 | Observation (INO) ==
[~2023-08-27 08:37] MED LIST changes: -Buffered Lidocaine 1% SYRIN* 1 ML/SYRINGE INTRADERM ONE; -Bupivacaine 0.25% EPI 200,000* 30 ML SDV ONE; -Dexamethasone IV* 4 MG/ML 1 ML (4 MG) ONE; -Etomidate* 2 MG/ML 10 ML VIAL ONE; -HYDROmorphone INJ1* 1 MG/ML SYRINGE IV PRN; -Heparin VIAL(*) 5000 UNITS/ML VIAL (FIVE THOUSAND) ONE; -Labetalol IV* 5 MG/ML 20 ML VIAL IV PUSH PRN; -Lactated Ringers 1000 ML Bag* 1,000 ML IV SCH; -Midazolam* 1 MG/ML 2 ML VIAL (2 MG) ONE; +Naloxone 0.4 mg VIAL 0.4 mg/ml 1 ml VIAL IV PRN; -Naloxone* 0.4 MG/ML 1 ML VIAL IV PRN; -Rocuronium* 10 MG/ML VIAL ONE; -ceFAZolin 2 GM PREMIX in ORs 2 GM/50 ML BAG ONE; +fentaNYL 100 mcg/2 ml 50 MCG/ML VIAL IV PRN; -fentaNYL* 50 MCG/ML 2 ML VIAL (100 MCG VIAL) ONE
[2023-08-27] MEDS: Lactated Ringers 1000 ml BAG 1,000 ML IV SCH ×2 (09:01→16:41)
[2023-08-27] MEDS: Buffered Lidocaine 1% SYRIN 1 ml INTRADERM ONE (09:01)
[2023-08-27] MEDS ORDERED: Midazolam 2 mg/2 ml VIAL 1 mg/ml 2 ml VIAL (2 mg) ONE (09:16)
[2023-08-27] MEDS ORDERED: fentaNYL 100 mcg/2 ml 50 MCG/ML VIAL ONE (09:16)
[2023-08-27 09:17] LABS: Rapid COVID-19 Molecular Undetected (Undetected)
[2023-08-27] MEDS ORDERED: cefTRIAXone 2 gm/50 mL D5W 2 GM/50 ML BAG IV ONE (09:27)
[2023-08-27] MEDS ORDERED: Furosemide 20 mg/2 ml IV VIAL ONE ×2 (10:41→15:51)
[2023-08-27] MEDS ORDERED: Ondansetron 4 mg VIAL 2 MG/ML 2 ml VIAL ONE (10:42)
[2023-08-27] MEDS ORDERED: Dexamethasone IV 4 MG/ML VIAL 1 ml VIAL ONE (10:42)
[2023-08-27] MEDS ORDERED: Propofol 10 MG/ML 20 ML BTL ONE (11:50)
[2023-08-28 07:23] LABS: Calcium 8.6 mg/dL (8.6-10.3); Creatinine, Serum 0.97 mg/dL (0.67-1.17); Potassium 4.4 mmol/L (3.5-5.0); eGFR CKD-EPI 83.5 (>60)
[2023-08-28] MEDS: cefTRIAXone 1 gm/50 mL D5W 1 GM/50 ML BAG IV SCH (08:48)
[2023-08-28 09:42] VITALS: BP 152/74
== END 2023-08-28 14:54 | disposition home or self-care (01) ==
LOC: SSU 08:37 → OR 08:37
PROVIDERS: ADMIT Urology; ATTEND Urology